=== PATIENT | female | born 1960 | race Caucasian/White ===

== ENCOUNTER 2018-12-19 12:41 | Emergency (ER) | payer BC ==
[~2018-12-19] VITALS: Ht 154.9 cm; Wt 88.5 kg
[~2018-12-19 12:41] MED LIST: BENA5TAB5 PO
[2018-12-19 12:45] VITALS: BP_SYST 160
[2018-12-19] MEDS ORDERED: ONDANSETRON 4 MG ODT TAB PO ONE (13:00)
[2018-12-19] MEDS ORDERED: HYDROcodone/ACETAMIN 5-325 MG TAB (NORCO/ VICODIN) PO ONE (13:00)
[2018-12-19] MEDS ORDERED: KETOROLAC TROMETHAMINE 60 MG/2 ML VIAL IM ONE (13:00)
[2018-12-19 14:37] VITALS: BP_SYST 137
== END 2018-12-19 14:22 | disposition home or self-care (01) ==
LOC: SED 12:41
DX: S42.251A Displaced fracture of greater tuberosity of right humerus, initial encounter for closed fracture (principal); I10 Essential (primary) hypertension; W01.198A Fall on same level from slipping, tripping and stumbling with subsequent striking against other object, initial encounter; Y93.89 Activity, other specified; Y92.89 Other specified places as the place of occurrence of the external cause; Y99.8 Other external cause status
CPT/HCPCS: 29105; 73030; 96372; 99283; J1885; Q0162